=== PATIENT | male | born 1990 | race Caucasian/White ===

== ENCOUNTER 2021-01-28 15:42 | Emergency (ER) | payer BC, SELFPAY ==
[2021-01-28 16:00] VITALS: BP 124/85; PULSE 102; RESP 18; TEMP 37.1; O2SAT 99
--- NOTE | 2021-01-28 16:21 | ED.URI ---
HPI - URI/Sore Throat General Chief Complaint: Upper Respiratory Infection Stated Complaint: Sinu, Lt side of neck Time Seen by Provider: 01/28/21 16:06 Source: patient and RN notes reviewed Mode of arrival: ambulatory Limitations: no limitations History of Present Illness HPI Narrative: Patient presents today complaining of nasal congestion, left-sided sinus pressure, left-sided neck pain and lymph node tenderness, left ear pain x4 days. Denies cough, sore throat, rhinorrhea, fever, shortness of breath, or difficulty swallowing. Currently rates his pain 6/10 and has been taking decongestant and NyQuil without much relief. Pain increases in the neck with movement. MD elicited complaint: nasal congestion and sinus pain Related Data Home Medications Medication Instructions Recorded Confirmed acyclovir 200 mg PO DAILY 01/28/21 01/28/21 atorvastatin 10 mg PO DAILY 01/28/21 01/28/21 lisinopril 10 mg PO DAILY 01/28/21 01/28/21 Allergies Allergy/AdvReac Type Severity Reaction Status Date / Time Sulfa (Sulfonamide Allergy Mild Hives / Verified 01/28/21 15:56 Antibiotics) Red Face Review of Systems Review of Systems: Narrative: CONSTITUTIONAL: Denies body aches, fever, chills, or sweats. EYES: Denies visual changes, redness, or discharge. ENT: Denies rhinorrhea, sore throat.+ Congestion, left-sided sinus pressure, left neck lymph node pain, left ear pain CARDIOVASCULAR: Denies chest pain, palpitations, or edema. RESPIRATORY: Denies cough or dyspnea. GASTROINTESTINAL: Denies abdominal pain, nausea, vomiting, or diarrhea. GENITOURINARY: Denies dysuria or hematuria. SKIN: Denies rash, itching, or wounds. MUSCULOSKELETAL: Denies back pain, joint pain, or myalgia. NEUROLOGIC: Denies headache, numbness, tingling, or weakness. PSYCH: Denies depression or anxiety. [facility] Social History Social History Gender identity (if verbalized by the patient): Male Comments At time of signature, I have reviewed and agree with nursing past medical, surgical, social and family history unless otherwise noted. Please see nursing chart for further information. There is no relevant family history pertinent to the presenting complaint Exam Narrative: Exam Narrative: GENERAL: Well-appearing, well-nourished, and in no acute distress. HEAD: Normocephalic, atraumatic. EYES: EOMI. No redness or drainage. Conjunctivae normal. ENT: Mucous membranes pink and moist. Nares are erythematous and edematous. Bilateral occlusive cerumen impactions. Throat normal. Uvula midline. NECK: Normal AROM. Supple. Tenderness to the left anterior cervical chain without palpable swollen lymph node. CHEST: No respiratory distress. Clear to auscultation. HEART: Regular rate and rhythm. No murmur appreciated. Normal peripheral pulses. EXTREMITIES: Normal range of motion. No edema. SKIN: Warm, dry, no rash. Capillary refill normal. Normal skin turgor. NEURO: No focal deficits. Alert and oriented x3. Gait steady. PSYCH: Normal affect. No signs of depression or anxiety. Course Vital Signs Vital signs: Vital Signs Temperature 98.8 F 01/28/21 16:00 Pulse Rate 102 H 01/28/21 16:00 Respiratory Rate 18 01/28/21 16:00 Blood Pressure 124/85 01/28/21 16:00 Pulse Oximetry 99 01/28/21 16:00 Temperature 98.8 F 01/28/21 16:00 Pulse Rate 102 H 01/28/21 16:00 Respiratory Rate 18 01/28/21 16:00 Blood Pressure 124/85 01/28/21 16:00 Pulse Oximetry 99 01/28/21 16:00 Reviewed. Pt has been instructed to follow up with his PCP regarding his elevated blood pressure today. MDM - URI/Sore Throat Differential Diagnosis Differential diagnosis: Likely upper respiratory infection, otitis media, sinusitis, viral infection and pharyngitis Critical Care Time Critical Care Time Critical Care Time: No Discharge Plan Discharge Clinical Impression: Sinusitis Qualifiers: Sinusitis location
== END 2021-01-28 16:30 | disposition home or self-care (01) ==
PROVIDERS: Emergency Provider Nurse Practitioner
DX: J01.90 Acute sinusitis, unspecified (principal); E78.00 Pure hypercholesterolemia, unspecified; I10 Essential (primary) hypertension; M32.14 Glomerular disease in systemic lupus erythematosus; Z92.21 Personal history of antineoplastic chemotherapy
CPT/HCPCS: 99213; G0463

== ENCOUNTER 2022-05-16 10:06 | Emergency (ER) | payer BC, SELFPAY ==
--- NOTE | 2022-05-16 10:07 | ED.URI ---
HPI - URI/Sore Throat General Stated Complaint: Congestion,Dizziness Time Seen by Provider: 05/16/22 10:06 Source: patient Mode of arrival: ambulatory Limitations: no limitations History of Present Illness HPI Narrative: Mr. Trujillo is a 31-year-old male patient presenting to clinic today with complaints of fever, cough, nasal congestion, as well as dizziness since last night. He reports he had a fever of 101. He reports that his symptoms have greatly improved today but wanted to come in to be checked out. He still has some cough and nasal congestion. Temperature currently is 98?. He denies sore throat MD elicited complaint: sore throat and nasal congestion Related Data Home Medications Medication Instructions Recorded Confirmed atorvastatin 10 mg tablet 10 mg PO DAILY 01/28/21 01/28/21 lisinopril 10 mg tablet 10 mg PO DAILY 01/28/21 01/28/21 mycophenolate mofetil 500 mg tablet 500 mg PO DAILY 05/16/22 05/16/22 Allergies Allergy/AdvReac Type Severity Reaction Status Date / Time Sulfa (Sulfonamide AdvReac Mild Hives / Verified 05/16/22 10:08 Antibiotics) Red Face Review of Systems Review of Systems: Pertinent positives per HPI. Patient denies any rash, headache, visual changes, shortness of breath, chest pain, palpitations, nausea, vomiting, diarrhea, constipation, abdominal pain, or any urinary issues. PMFSH Social History Social History Gender identity (if verbalized by the patient): Male Comments At the time of my signature, I reviewed and agree with the nursing past medical, surgical, social, and family history. There is no relevant family history pertinent to the patient complaint. Exam Narrative: General: Well-developed, well nourished, in no apparent distress Head: Normocephalic, atraumatic Eyes: Pupils equally round and reactive to light bilaterally, EOM intact, sclera and conjunctive clear, no discharge, lids normal Ears: TMs intact and clear, ear canals ceruminous, no drainage, grossly hearing normal. Nose: Nares patent, clear nasal discharge, no inflammation, no sinus tenderness. Mouth: Oral pharynx without lesions or masses, good dentition, MMM. Neck: Supple, trachea midline, no enlargement of anterior or posterior cervical nodes, no thyroid masses or goiter palpable. Cardio: Regular rate and rhythm, s1 and s2 normal, no murmur appreciated. Resp: Clear to auscultation bilaterally, no rhonchi, rales, wheezing or rubs Course Course Emergency Course: Portions of this record may have been created with voice recognition software. Level of Care: Express Care Visit Vital Signs Vital signs: Vital signs reviewed MDM - URI/Sore Throat MDM Narrative Medical decision making narrative: At the time of visit patient is resting comfortably on exam table. Influenza testing was performed and was negative in the clinic today. I suspect patient has upper respiratory infection. Supportive measures were discussed with the patient he voiced understanding of discharge instructions and agrees to treatment plan. Differential Diagnosis Differential diagnosis: Likely sinusitis, viral infection, influenza and pharyngitis Discharge Plan Discharge Clinical Impression: Upper respiratory infection Qualifiers: URI type: unspecified viral URI Qualified Code(s): J06.9 - Acute upper respiratory infection, unspecified Patient Disposition: Home, Self-Care Condition: Stable Instructions: Antibiotic Form, Upper Respiratory Infection (ED) Additional Instructions: Influenza testing was negative in the clinic today. Increase fluids and stay well hydrated Tylenol/motrin for pain/fever Flonase and OTC antihistamines as directed Vicks vapor rub to open sinuses Sinus rinses for congestion Cepacol spray, cough drops, throat lozenges, warm tea with honey/lemon, gargle salt water to soothe throat BRAT diet for diarrhea Clear liquids
[2022-05-16 10:15] VITALS: BP 137/87; PULSE 78; RESP 18; TEMP 36.7; O2SAT 98
== END 2022-05-16 10:41 | disposition home or self-care (01) ==
PROVIDERS: Emergency Provider Nurse Practitioner Family
DX: J06.9 Acute upper respiratory infection, unspecified (principal)
CPT/HCPCS: 87804; 99213; G0463

== ENCOUNTER 2022-06-22 10:41 | Emergency (ER) | payer BC, SELFPAY ==
[2022-06-22 10:48] VITALS: BP 127/81; PULSE 96; RESP 16; TEMP 36.3; O2SAT 100
--- NOTE | 2022-06-22 11:33 | ED.NAVMDI ---
HPI - Nausea/Vomiting/Diarrhea General Chief complaint: Nausea/Vomiting/Diarrhea Stated complaint: Nausea,Upset Stomach Time Seen by Provider: 06/22/22 11:24 Source: patient Mode of arrival: ambulatory Limitations: no limitations History of Present Illness HPI Narrative: Patient presents today complaining of nausea, vomiting, and abdominal pain that started 1.5 hours prior to arrival. Patient states he he started experiencing upper abdominal pain while at work at the [employer]. He vomited 1 time and states his abdominal pain had subsided and he started feeling better. He left work and needed to be evaluated. Denies diarrhea. Denies fever. He rated his pain 6/10. He has tried no medication for symptoms prior to arrival. History of lupus. States he needs a note to excuse him from work today, to return tomorrow. Related Data Home Medications Medication Instructions Recorded Confirmed atorvastatin 10 mg tablet 10 mg PO DAILY 01/28/21 06/22/22 lisinopril 10 mg tablet 10 mg PO DAILY 01/28/21 06/22/22 mycophenolate mofetil 500 mg tablet 500 mg PO DAILY 05/16/22 06/22/22 acyclovir 200 mg capsule 200 mg PO DAILY 06/22/22 06/22/22 Allergies Allergy/AdvReac Type Severity Reaction Status Date / Time Sulfa (Sulfonamide AdvReac Mild Hives / Verified 06/22/22 11:01 Antibiotics) Red Face Review of Systems Review of Systems: CONSTITUTIONAL: Denies body aches, fever, chills, or sweats. EYES: Denies visual changes, redness, or discharge. ENT: Denies rhinorrhea, congestion, sore throat, or otalgia. CARDIOVASCULAR: Denies chest pain, palpitations, or edema. RESPIRATORY: Denies cough or dyspnea. GASTROINTESTINAL: Denies diarrhea.+ nausea, vomiting, abdominal pain GENITOURINARY: Denies dysuria or hematuria. SKIN: Denies rash, itching, or wounds. MUSCULOSKELETAL: Denies back pain, joint pain, or myalgia. NEUROLOGIC: Denies headache, numbness, tingling, or weakness. PSYCH: Denies depression or anxiety. [facility] Social History Social History Gender identity (if verbalized by the patient): Male Comments At time of signature, I have reviewed and agree with nursing past medical, surgical, social and family history unless otherwise noted. Please see nursing chart for further information. There is no relevant family history pertinent to the presenting complaint Exam Narrative: GENERAL: Well-appearing, well-nourished, and in no acute distress. HEAD: Normocephalic, atraumatic. EYES: EOMI. No redness or drainage. Conjunctivae normal. ENT: Mucous membranes pink and moist. NECK: Normal AROM. CHEST: No respiratory distress. Clear to auscultation. HEART: Regular rate and rhythm. No murmur appreciated. Normal peripheral pulses. ABDOMEN: Soft, nontender, nondistended, normal active bowel sounds.-CVAT MUSCULOSKELETAL: No bony tenderness. EXTREMITIES: Normal range of motion. No edema. SKIN: Warm, dry, no rash. Capillary refill normal. Normal skin turgor. NEURO: No focal deficits. Alert and oriented x3. Gait steady. PSYCH: Normal affect. No signs of depression or anxiety. Course Course Level of Care: Express Care Visit Vital Signs Vital signs: Vital Signs Temperature 97.3 F L 06/22/22 10:48 Pulse Rate 96 06/22/22 10:48 Respiratory Rate 16 06/22/22 10:48 Blood Pressure 127/81 06/22/22 10:48 Pulse Oximetry 100 06/22/22 10:48 Oxygen Delivery Room Air 06/22/22 10:48 Temperature 97.3 F L 06/22/22 10:48 Pulse Rate 96 06/22/22 10:48 Respiratory Rate 16 06/22/22 10:48 Blood Pressure 127/81 06/22/22 10:48 Pulse Oximetry 100 06/22/22 10:48 Oxygen Delivery Room Air 06/22/22 10:48 Reviewed. Pt has been instructed to follow up with his PCP regarding his elevated blood pressure today. MDM - Nausea/Vomiting/Diarrhea Differential Diagnosis Differential diagnosis: Likely food poisoning, gastroenteritis, dehydration and other (Influe
== END 2022-06-22 11:40 | disposition home or self-care (01) ==
PROVIDERS: Emergency Provider Nurse Practitioner
DX: R11.2 Nausea with vomiting, unspecified (principal); R10.10 Upper abdominal pain, unspecified; E78.00 Pure hypercholesterolemia, unspecified; I10 Essential (primary) hypertension; M32.14 Glomerular disease in systemic lupus erythematosus
CPT/HCPCS: 99211; G0463

== ENCOUNTER 2023-10-09 10:56 | Emergency (ER) | payer BC, SELFPAY ==
[2023-10-09 11:31] VITALS: BP 118/70; PULSE 84; RESP 18; TEMP 36.6; O2SAT 98
--- NOTE | 2023-10-09 12:06 | ED.NAVMDI ---
HPI - Nausea/Vomiting/Diarrhea General Chief complaint: Nausea/Vomiting/Diarrhea Stated complaint: nausea,diarrhea Time Seen by Provider: 10/09/23 11:45 Source: patient Mode of arrival: ambulatory Limitations: no limitations History of Present Illness HPI Narrative: 32 yo M presents with c/o sore throat, PND, fatigue, headache, bodyaches, upset stomach and nausea since last night. afebrile. Went to work today and did not feel well so left. Needs work note. All systems reviewed and negative except as noted above. Related Data Home Medications Medication Instructions Recorded Confirmed atorvastatin 10 mg tablet 10 mg PO DAILY 01/28/21 10/09/23 lisinopril 10 mg tablet 10 mg PO DAILY 01/28/21 10/09/23 mycophenolate mofetil 500 mg tablet 500 mg PO DAILY 05/16/22 10/09/23 Allergies Allergy/AdvReac Type Severity Reaction Status Date / Time Sulfa (Sulfonamide Allergy Mild Hives / Verified 10/09/23 11:34 Antibiotics) Red Face Review of Systems Review of Systems: CONSTITUTIONAL: Denies fever, chills, or sweats. Reports fatigue. EYES: Denies visual changes, redness, or discharge. ENT: Denies rhinorrhea, congestion reports sore throat. Denies otalgia. CARDIOVASCULAR: Denies chest pain, palpitations, or edema. RESPIRATORY: Denies cough or dyspnea. GASTROINTESTINAL: Denies abdominal pain . Reports nausea, vomiting, or diarrhea. GENITOURINARY: Denies dysuria or hematuria. SKIN: Denies rash or itching. MUSCULOSKELETAL: Denies back pain, joint pain, or myalgia. NEUROLOGIC: Denies headache, numbness, or weakness. PSYCHIATRIC: Denies anxiety or depression. All other systems reviewed are negative, except as documented in HPI. PMFSH Social History Social History Gender identity (if verbalized by the patient): Male Comments At time of signature, agree with nursing past medical, surgical, social and family history. There is no relevant family history pertinent to the presenting complaint. Exam Narrative: GENERAL: This is a well-nourished, well-developed patient, in no apparent distress. HEAD: normocephalic, atraumatic. EYES: PERRL. Sclera clear/white. Vision is grossly intact. EARS: External ears normal, auditory canals clear and without drainage, TMs normal without perforation. Hearing grossly intact. NOSE: External nose normal with no obvious nasal discharge, nares without redness, no rhinorrhea. THROAT: Mucous membranes moist, mild erythema and swelling To posterior pharynx without tonsillar swelling or exudates. NECK: Neck supple, non-tender without lymphadenopathy, masses or thyromegaly. CARDIOVASCULAR: Regular rate and rhythm without murmurs, gallops, or rubs. RESPIRATORY: Clear to auscultation. Breath sounds equal bilaterally. No wheezes, rales, or rhonchi. GASTROINTESTINAL: Abdomen soft, non-tender, nondistended. Bowel sounds are active. No hepato-splenomegaly, or palpable masses. No guarding. SKIN: warm, Dry, intact with no suspicious lesions or rash, good texture and turgor. NEURO: awake, alert, and oriented to person, place and time. There were no obvious focal neurologic abnormalities. EXTREMITIES: No joint tenderness, effusion, or edema noted. Course Course Level of Care: Express Care Visit Vital Signs Vital signs: Vital Signs Temperature 36.6 C 10/09/23 11:31 Pulse Rate 84 10/09/23 11:31 Respiratory Rate 18 10/09/23 11:31 Blood Pressure 118/70 10/09/23 11:31 Pulse Oximetry 98 10/09/23 11:31 Oxygen Delivery Room Air 10/09/23 11:31 Temperature 36.6 C 10/09/23 11:31 Pulse Rate 84 10/09/23 11:31 Respiratory Rate 18 10/09/23 11:31 Blood Pressure 118/70 10/09/23 11:31 Pulse Oximetry 98 10/09/23 11:31 Oxygen Delivery Room Air 10/09/23 11:31 reviewed MDM - Nausea/Vomiting/Diarrhea MDM Narrative Medical decision making narrative: negative COVID, influenza and strep test today. Will wait
== END 2023-10-09 12:25 | disposition home or self-care (01) ==
PROVIDERS: Emergency Provider Nurse Practitioner Family
DX: B34.9 Viral infection, unspecified (principal); Z20.822 Contact with and (suspected) exposure to COVID-19
CPT/HCPCS: 87081; 87426; 87804; 87880; 99213; G0463

== ENCOUNTER 2024-08-25 10:31 | Emergency (ER) | payer BC, SELFPAY ==
--- OUTSIDE RECORDS SUMMARY | 2024-08-25 10:54 | XMS_ITS | Clinical Summary ---
Author Organization [facility] Address [facility] [place] [address] Care Team Providers Care Home Insurance Agent Name Role Phone Dayton Hebert MD Primary Care Provider [phone] Allergies Active Allergy Reactions Criticality Noted Date Comments Amoxicillin Other (see comment) Low 11/13/2017 Benzalkonium Chloride Rash Medium 06/20/2018 Positve patch test allergen Benzophenone Rash Medium 06/20/2018 Positve patch test allergen Hydroxychloroquine Other (see comment),Hives Medium 05/31/2018 Pt reported Mucopolysaccharides Hives High 03/29/2018 Sulfa Antibiotics Hives 08/27/2018 Sulfacetamide Unknown 04/11/2018 Medications cholecalciferol (VITAMIN D-[address]) 25 MCG (1000 UT) Tab tablet Take 1,000 Units by mouth daily. Active mycophenolate mofetil 500 MG tablet Take 1,000 mg by mouth 3 (three) times daily. 08/13/2019 Active acyclovir 200 mg capsule 08/07/2021 Active lisinopril 30 MG tablet 10/16/2021 Active Ascorbic Acid (VITAMIN C OR) Activ e Multiple Vitamins-Mineral s (ZINC OR) Active Active Problems Problem Noted Date Diagnosed Date Lupus nephritis, ISN/RPS class III (CMS/HCC [facility]/ [facility]) 09/11/2019 Essential hypertension 05/23/2019 Overview (10/25/2021): Last Assessment & Plan: Continue home lisinopril Lumbar disc disease with radiculopathy 9 Subcutaneous abscess 05/04/2018 Sebaceous cyst 04/11/2018 Overview (05/30/2018): Description: Cyst on Left side of upper back. Immunizations Name Administration Dates Next Due Influenza Adult (Generic) 05/08/2019 Pneumococcal (Pneumovax 23) 05/08/2019 Rabies Vaccine 01/09/2016,01/02/2016,12/29/2015 ,12/26/2015 Tdap (Generic) 12/26/2015 Family History Medical History Relation Comments Diabetes Father Cancer Maternal Grandfather Cancer Maternal Grandmother Cancer Mother Diabetes Paternal Grandfather Relation Status Comments Father Alive Maternal Grandfather stomach Maternal Grandmother throat Mother Alive skin Paternal Grandfather Social History Tobacco Use Types Packs/Day Years Used Date Smoking Tobacco: Every Day Cigarettes Cigars Smokeless Tobacco: Never Tobacco Cessation:Ready to Q uit: No; Counseling Given: Yes Comments:1 cigar a day Alcohol Use Standard Drinks/Week Comments Yes 0 (1 standard drink = 0.6 oz pur e alcohol) social AUDIT-C Answer Date Recorded Frequency of Alcohol Consumption Monthly or less 05/30/2018 Average Number of Drinks Not on file 018 Frequency of Binge Drinking Not on file 05/17 PHQ-2 Answer Date Recorded PHQ-2 Score - If the patient scores above 3, please move on to questions 3-9 0 10/25/2021 Sex and Gender Information Value Date Recorded Sex Assigned at Not on file Legal Sex Male 5:43 PM CDT Gender Identity Not on file Sexual Orientation Not on file Last Filed Vital Signs Vital Sign Reading Time Taken Comments Blood Pressure 135/81 10/25/2021 10:57 AM CDT Pulse 90 10/25/2021 10:57 AM CDT Temperature 36.4 C (97.5 F) 10/25/2021 10:57 AM CDT Respiratory Rate 18 10/25/2021 10:5 7 AM CDT Oxygen Saturation 98% 10/25/2021 10: 57 AM CDT Inhaled Oxygen Concentration - - Weight 126.8 kg (279 lb 9.6 oz) 022 10:57 AM CDT Height 190.5 cm (6' 3 ) 10/25/2021 10:5 7 AM CDT Body Mass Index 34.95 10/25/2021 10:57 AM CDT Plan of Treatment Health Maintenance Due Date Last Done Comments Annual Physical 11/18/1991 COVID-19 Vaccine (#1) 1993 PHQ-2 (Physician [facility]ler) 2000 Hepatitis C 2006 Hepatitis B Vaccines (1 of 3 - 19+ 3-dose series) 11/18/2007 Pneumococcal Vaccine: Pediat rics (0 to 5 Years) and At-Risk Patients (6 to 64 Years) (2 of 2 - PCV) 05/08/2020 05/08/2019 Influenza Adult (#1) 2024 05/08/2019 PHQ-2 (Physician [facility]) 07/17/2024 DTaP, Tdap and Td Vaccines ( 2 - Td or Tdap) 12/25/2025 12/26/2015 HPV Vaccines Aged Out No longer eligi ble based on patient's age to complete this topic Meningococcal B Vaccine Aged Out No l onger eligible based on patient's age to complete this topic Meningococcal Vaccine Aged Out No mary kevin eligible based on patient's age to complete this topic RSV Immunizations Under 20 Months Aged Out No longer eligible based on patient's age to complete this topic Insurance [employer] Care Teams Home Insurance Agent Relationship Specialty Start Date End Date Dayton Hebert MD [address] [address] PCP - General FAMILY PRACTICE 05/28/18
--- OUTSIDE RECORDS SUMMARY | 2024-08-25 10:55 | XMS_ITS | Clinical Summary ---
Author Organization [facility] Address [address] [place] [address] Care Team Providers Care Cnc Maintenance Technician Name Role Phone No, Physician Primary Care Provider [phone] Allergies Active Allergy Reactions Criticality Noted Date Comments Amoxicillin Trihydrate Other (See comments) Low 11/13/2017 Benzalkonium Chloride Rash Medium 06/20/2018 Positve patch test allergen Benzophenone Rash Medium 06/20/2018 Positve patch test allergen Clindamycin Other (See comments) Low 11/13/2017 Hydroxychloroquine Hives,Fever Medium 05/31/2018 Pt reported Potassium Clavulanate Other (See comments) Low 11/13/2017 Sulfa (Sulfonamide Antibiotics) Hives High 10/20/2017 Sulfacetamide Hives High 04/11/2018 Sulfated Mucopolysaccharides Hives High 018 Medications cholecalciferol (VITAMIN D-3) 1,000 unit capsuleIndicati ons:Vitamin D Deficiency Take 1 capsule (1,000 Units total) by mouth daily 90 tablet 3 10/30/2019 Active mycophenolate mofetil (CELLCEPT) 500 mg tablet Take 1 tablet (500 mg total) by mouth daily 30 tablet 11 12/07/2023 Active lisinopriL (PRINIVIL,ZESTR IL) 30 mg tablet Take 1 tablet (30 mg total) by mouth daily 90 tablet 1 05/27/2024 Active Active Problems Problem Noted Date Diagnosed Date Hypertension secondary to other renal disorders 12/25/2023 Mixed hyperlipidemia 11/03/2022 Vitamin D deficiency 07/01/2020 Lupus nephritis, ISN/RPS class III ([facility]) Lupus nephritis ([facility]) 09/11/2019 Leg cramping 05/24/2019 Assessment & Plan (05/24/2019 10:40 AM PRODUCTION SUPERINTENDENT): Patient says he experiences occasional leg cramping. Worse at night. - improved with flexeril Persistent proteinuria 05/23/2019 Assessment & Plan (05/24/2019 10:39 AM PRODUCTION SUPERINTENDENT): Due to proteinuria patient presented yesterday for US guided kidney biopsy. - No complications noted over night, hgb stable - Pain and nausea control- patient denies pain and nausea Assessment & Plan (05/23/2019 4:43 PM PRODUCTION SUPERINTENDENT): Due to proteinuria patient presented today for US guided kidney biopsy. - monitor overnight for post procedure complications - cbc ordered for 6 hours after procedure - Pain and nausea control Primary hypertension 05/23/2019 Assessment & Plan (05/24/2019 10:39 AM PRODUCTION SUPERINTENDENT): Continue home lisinopril Assessment & Plan (05/23/2019 4:36 PM PRODUCTION SUPERINTENDENT): Continue home lisinopril Phototoxicity 10/02/2018 High risk medications (not anticoagulants) long- term use 09/12/2018 Lumbar disc disease with radiculopathy 9 Gynecomastia 07/01/2018 Low testosterone 07/01/2018 Other forms of systemic lupus erythematosus 03/17 Assessment & Plan (05/24/2019 10:39 AM PRODUCTION SUPERINTENDENT): Continue home imuran and prednisone Assessment & Plan (05/23/2019 4:43 PM PRODUCTION SUPERINTENDENT): Continue home imuran and prednisone Immunizations Name Administration Dates Next Due Influenza, Quadrivalent, Lena l Culture-based MDCK, Preservative Free, Antibiotic Free, Intramuscular 05/08/2019 Pneumococcal Conjugate PCV 13 02/03/2022 Pneumococcal Polysaccharide PPV23 05/08/2019 Surgical History Surgery Date Site/Laterality Comments ABCESS DRAINAGE US GUIDED BIOPSY RENAL 05/23/2019 N/A Medical History Medical History Date Comments Abscess Lupus Hypertension Family History Medical History Relation Name Comments Diabetes Father Skin cancer Mother Rheum arthritis Other great paternal grandmoth Diabetes Paternal Grandfather Relation Name Status Comments Father Alive Mother Alive Other great paternal grandmoth Alive Paternal Grandfather Social History Tobacco Use Types Packs/Day Years Used Date Smoking Tobacco: Former Cigarettes 0.5 5 Cigars Smokeless Tobacco: Never Tobacco Cessation:Counseling Given: Not Answered Alcohol Use Standard Drinks/Week Comments Yes 0 (1 standard drink = 0.6 oz pur e alcohol) Occasional Sex and Gender Information Value Date Recorded Sex Assigned at Not on file Legal Sex Male 12:01 PM PRODUCTION SUPERINTENDENT Gender Identity Male 11/06/2018 11:18 AM CDT Sexual Orientation Not on file Obstetrics History Last Filed Vital Signs Vital Sign Reading Time Taken Comments Blood Pressure 120/80 12/07/2023 9:42 AM CDT Pulse 82 12/07/2023 9:42 AM CDT Temperature 36.8 C (98.2 F) 12/07/2023 9:42 AM CDT Respiratory Rate 16 09/14/2020 7:53 AM PRODUCTION SUPERINTENDENT Oxygen Saturation 100% 10/28/2020 1:25 PM CDT Inhaled Oxygen Concentration - - Weight 134.3 kg (296 lb) 12/07/2023 9:42 AM CDT Height 193 cm (6' 4 ) 12/07/2023 9:42 AM CDT Body Mass Index 36.03 12/07/2023 9:42 AM CDT Plan of Treatment Health Maintenance Due Date Last Done Comments Depression Screening 1988 Varicella Vaccines (1 of 2 - 13+ 2-dose series) 2001 Hepatitis B Screening 2006 Regular Well Visit/Exam 18-64 2006 Zoster Vaccine (1 of 2) 11/18/2007 Influenza Vaccine (#1) 2024 9, 05/03/2001 Pneumococcal vaccine <65 (3 of 3 - PPSV23 or PCV20) 05/08/2024 02/03/2022, 05/08/2019 DTaP/Tdap/Td Vaccine (3 - Td or Tdap) 12/25/2025 12/26/2015, 12/26/2015 Hepatitis C Screening Completed 05/08/2019 HPV Vaccines Aged Out No longer eligi ble based on patient's age to complete this topic Procedures Procedure Name Priority Date/Time Associated Diagnosis Comments HEPATITIS PANEL, ACUTE Routine 05/08/2019 10:32 AM CDT Proteinuria, unspecified type from Last 3 Months or Most Recently Relevant to Health Maintenance Results * Hepatitis panel, acute (05/08/2019 10:32 AM CDT) Hep A IgM Nonreactive Nonreactive [facility] Comment: Interpretive Data If test is reported as GRAYZONE, new sample should be drawn in two weeks for testing. Current interpretive data was last revised on 2016. Hep B core IgM Nonreactive Nonreactive [facility] Comment: Interpretive Data If test is reported as GRAYZONE, new sample should be drawn for testing. Current interpretive data was last revised on 2016. Hep C Ab Nonreactive Nonreactive [facility] Comment: Interpretive Data Positive results should be confirmed by a molecular method. If positive, a second separately collected sample should be submitted for Hepatitis C Virus (HCV) RNA Detection and Quantitation by Real-Time Reverse Strings Teacher-PCR (RT-PCR). Current interpretive data was last revised on 2016. HepBsAg Nonreactive Nonreactive [facility] Blood specimen (specimen) 05/08/2019 10:32 AM CDT 05/08/2019 10:41 AM CDT Jjuu Gonzalez MD LAB MICROBIOLOGY - GENERA L ORDERABLES Edited Result - Final [address] [place] [address] from Last 3 Months or Most Recently Relevant to Health Maintenance Insurance [facility] [place] Advance Directives For more information, please contact: [phone] * Full Code (Latest Code Status on File) Date Activated Date Inactivated Comments 05/23/2019 11:35 AM 05/24/2019 4:43 AM Care Teams Cnc Maintenance Technician Relationship Specialty Start Date End Date No, Physician PCP - General 04/28/22
--- OUTSIDE RECORDS SUMMARY | 2024-08-25 10:55 | XMS_ITS | Encounter Summary ---
Author Organization [facility] [employer] [facility] Address [address] [place] [address] Phone Care Team Providers Care Hematologist Oncologist Name Role Phone Eliot Mari MD Primary Care Provider + No, Physician Primary Care Provider [phone] No, Physician Primary Care Provider [phone] Encounter Details Date Type Department Care Team (Late st Contact Info) Description 09/08/2019 Orders Only [facility] Scanning, Provider Social History Tobacco Use Types Packs/Day Years Used Date Smoking Tobacco: Former Cigarettes 0.5 5 Cigars Smokeless Tobacco: Never Alcohol Use Standard Drinks/Week Comments Yes 0 (1 standard drink = 0.6 oz pur e alcohol) Occasional Sex and Gender Information Value Date Recorded Sex Assigned at Not on file Legal Sex Male 12:01 PM ALTERNATIVE FINANCING SPECIALIST Gender Identity Male 11/06/2018 11:18 AM CDT Sexual Orientation Not on file documented as of this encounter Plan of Treatment Not on file documented as of this encounter Procedures Procedure Name Priority Date/Time Associated Diagnosis Comments SCAN - LABS 09/08/2019 documented in this encounter Results * SCAN - LABS (09/08/2019) us Provider Scanning Final Result documented in this encounter Visit Diagnoses Not on filedocumented in this encounter Care Teams Hematologist Oncologist Relationship Specialty Start Date End Date Eliot Mari MD [address] [place] [address] PCP - General 02/22/18 08/30/20 No, Physician PCP - General 08/31/20 04/27/22 No, Physician PCP - General 04/28/22 documented as of this encounter
--- OUTSIDE RECORDS SUMMARY | 2024-08-25 10:55 | XMS_ITS | Clinical Summary ---
Author Organization [facility] Address [address] [facility] Attn: Epic Prelude ADT [place] [address] Care Team Providers Care Asphalt Tar And Gravel Roofer Name Role Phone Unavailable Primary Care Provider Unavailabl e Social History Tobacco Use Types Packs/Day Years Used Date Smoking Tobacco: Never Assessed Sex and Gender Information Value Date Recorded Sex Assigned at Not on file Legal Sex Male 10:01 PM CDT Gender Identity Not on file Sexual Orientation Not on file Plan of Treatment Health Maintenance Due Date Last Done Comments DTAP/TDAP/TD VACCINES (1 - Tdap) 11/18/2007 HEPATITIS B VACCINES (1 of 3 - 19+ 3-dose series) 11/18/2007 INFLUENZA VACCINE (#1) 2024 HPV VACCINES Aged Out No longer eligi ble based on patient's age to complete this topic PNEUMOCOCCAL VACCINE 0-64 YEARS Aged Out No longer eligible based on patient's age to complete this topic
--- OUTSIDE RECORDS SUMMARY | 2024-08-25 10:55 | XMS_ITS | Continuity of Care Document ---
Author Organization [facility] Address [address] [place] [address] Phone Care Team Providers Care Production Administrator Name Role Phone Héctor HOGUE, Lacey Unavailable Unavailabl e Allergies, Adverse Reactions, Alerts Substance Reaction Status Criticality POTASSIUM CLAVULANATE Active No Inf ormation AMOXICILLIN TRIHYDRATE Active No In formation clindamycin Active No Information Medications Medication Instructions Dosage Effective Dates (start - stop) Status Comments prednisone 10 mg tablet 4 for 3 days, 3 for 3 days, 2 for 3 days and one 3 days - Active [facility] 180 mg tablet take 1 tablet by oral route every day 180 MG - Active famotidine 40 mg tablet take 1 tablet by oral route every day at bedtime 40 MG - Active Procedures Procedure Date OFFICE/OUTPATIENT VISIT NEW Advance Directives Directive Yes / No Effective Date File Name No Information Encounters Encounter Description Practice Location Reason(s) For Visit Diagnoses Date Provider Providers Copied on Encounter [facility] , [address] [facility] [address], [place], [address], [place] tel:[phone] [facility] No Information 8 Héctor Hamsa. [address], [place], [place], [id number]. tel:[phone] OFFICE/OUTPA TIENT VISIT NEW [facility] , [address] [facility], [place], [address], [place] tel:[phone] [facility] allergy evaluation (chief complaint) Rash and nonspecific skin eruptionPhotot oxicity 0 8 Héctor Hamsa. [address], [place], [place], [id number]. tel:[phone] Family History Family Member Type Diagnosis Age At Onset Father Problem (finding) Maternal history of carol betes mellitus Father Problem (finding) arthritis Mother Problem (finding) skin cancer Payers Payer name Insurance type Covered libertarian ID Authoriza tion(s) No Information Social History Type Description Quantity Date Captured Comments Sex Male Smoking Status No Information Chief Complaint And Reason For Visit No Information Reason For Referral Reason For Referral No Information History Of Present Illness Encounter Date Complaint History Of Prese nt Illness allergy evaluation Referred by [facility] , this is a gentleman with a very flushed face and neck (sun exposed areas) and a very scaly desquamating rash on his hands, neck , face and scalp, he has seen a tow truck operator but has not had a biopsy , the rash is very flaky , in Aug a ANÍBAL stain was done and was negatives ,At one point he had hives all over- which has since resolved Symptoms started in he had a Strep throat and bronchitis , treated with augmenting and tesslon pearls ,no NSAID's that he can remember , 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 , initial rash was on his face and neck - all sun exposed areas no mucous membrane lesions, affected skin was hot and feverish He after his hurt his foot, was on work comp , aug/september this was followed by stiff joints and face flushing , redness and flaky skin got worse - he did not flu shot , he was on 600mg of ibuprofen and vicodin This was followed by a cyst on his back , which was drained and since it was infected, he was given Clindamycin and the rash was worse on day 6 no new piercing , tattoos are more than one year he uses sunblock SPF 70One year ago - he had a cyst on his back , which was drained and given Sulfa and developed a rash he still has a flushed face and some dry scaly skin over his hands, neck and some on his face , no hives, no angioedema, itching Functional Status Date Functional Assessmen t No Information Instructions Date Instruction Additional Infor mation No Information Assessments Type Assessment Date No Information Patient Care Teams Name Effective Dates (start - stop) Status Members No Information
--- OUTSIDE RECORDS SUMMARY | 2024-08-25 10:55 | XMS_ITS | Continuity of Care Document ---
Author Organization [facility] Address [address] [place] [address] [place] [address] Phone Care Team Providers Care Parent Coach Name Role Phone Chiki Jensen DO Unavailable Unavailable Advance Directives Directive Yes / No Effective Date File Name No Information Encounters Encounter Description Practice Location Reason(s) For Visit Diagnoses Date Provider Providers Copied on Encounter [facility], [address] [place] [address] [address], [place], [place], [address], tel:[phone] [facility] No Information Mikey Oakley. [address], [place], [address], . tel: [phone] Family History Family Member Type Diagnosis Age At Onset No Information Payers Payer name Insurance type Covered libertarian ID Authorsam rudolph(s) [facility] Commercial CI [id number] Social History Type Description Quantity Date Captured Comments Sex Male Smoking Status No Information Chief Complaint And Reason For Visit No Information Reason For Referral Reason For Referral No Information History Of Present Illness Encounter Date Complaint History Of Prese nt Illness No Information Functional Status Date Functional Assessmen t No Information Instructions Date Instruction Additional Infor mation No Information Assessments Type Assessment Date No Information Patient Care Teams Name Effective Dates (start - stop) Status Members No Information
--- OUTSIDE RECORDS SUMMARY | 2024-08-25 10:55 | XMS_ITS | Referral Summary ---
Author Organization [facility] Address [address] [place] [address] Care Team Providers Care Compliance Professional Name Role Phone No, Physician Primary Care Provider [phone] Allergies Active Allergy Reactions Criticality Noted Date [...] deficiency 07/01/2020 Lupus nephritis, ISN/RPS class III ([facility]) Lupus nephritis ([facility]) 09/11/2019 Leg cramping 05/24/2019 Assessment & Plan (05/24/2019 10:40 AM KEEL PRESS OPERATOR): Patient says he experiences occasional leg cramping. Worse at night. - improved with flexeril Persistent proteinuria 05/23/2019 Assessment & Plan (05/24/2019 10:39 AM KEEL PRESS OPERATOR): Due to proteinuria patient presented yesterday for US guided kidney biopsy. - No complications noted over night, hgb stable - Pain and nausea control- patient denies pain and nausea Assessment & Plan (05/23/2019 4:43 PM KEEL PRESS OPERATOR): Due to proteinuria patient presented today for US guided kidney biopsy. - monitor overnight for post procedure complications - cbc ordered for 6 hours after procedure - Pain and nausea control Primary hypertension 05/23/2019 Assessment & Plan (05/24/2019 10:39 AM KEEL PRESS OPERATOR): Continue home lisinopril Assessment & Plan (05/23/2019 4:36 PM KEEL PRESS OPERATOR): Continue home lisinopril Phototoxicity 10/02/2018 High risk medications (not anticoagulants) long- term use 09/12/2018 Lumbar disc disease with radiculopathy 9 Gynecomastia 07/01/2018 Low testosterone 07/01/2018 Other forms of systemic lupus erythematosus 03/17 Assessment & Plan (05/24/2019 10:39 AM KEEL PRESS OPERATOR): Continue home imuran and prednisone Assessment & Plan (05/23/2019 4:43 PM KEEL PRESS OPERATOR): Continue home imuran and prednisone Immunizations Name Administration Dates Next Due Influenza, Quadrivalent, Lena l Culture-based MDCK, Preservative Free, Antibiotic Free, Intramuscular 05/08/2019 Pneumococcal Conjugate PCV 13 02/03/2022 Pneumococcal Polysaccharide PPV23 05/08/2019 Social History Tobacco Use Types Packs/Day Years Used Date Smoking Tobacco: Former Cigarettes 0.5 5 Cigars Smokeless Tobacco: Never Tobacco Cessation:Counseling Given: Not Answered Alcohol Use Standard Drinks/Week Comments Yes 0 (1 standard drink = 0.6 oz pur e alcohol) Occasional Sex and Gender Information Value Date Recorded Sex Assigned at Not on file Legal Sex Male 12:01 PM KEEL PRESS OPERATOR Gender Identity Male 11/06/2018 11:18 AM CDT Sexual Orientation Not on file Last Filed Vital Signs Vital Sign Reading Time Taken Comments Blood Pressure 120/80 12/07/2023 9:42 AM CDT Pulse 82 12/07/2023 9:42 AM CDT Temperature 36.8 C (98.2 F) 12/07/2023 9:42 AM CDT Respiratory Rate 16 09/14/2020 7:53 AM KEEL PRESS OPERATOR Oxygen Saturation 100% 10/28/2020 1:25 PM CDT Inhaled Oxygen Concentration - - Weight 134.3 kg (296 lb) 12/07/2023 9:42 AM CDT Height 193 cm (6' 4 ) 12/07/2023 9:42 AM CDT Body Mass Index 36.03 12/07/2023 9:42 AM CDT Plan of Treatment Not on file Procedures Procedure Name Priority Date/Time Associated Diagnosis Comments HEPATITIS PANEL, ACUTE Routine 05/08/2019 10:32 AM CDT Proteinuria, unspecified type from Last 3 Months or Most Recently Relevant to Health Maintenance Results * Hepatitis panel, acute (05/08/2019 10:32 AM CDT) Hep A IgM Nonreactive Nonreactive [facility] Comment: Interpretive Data If test is reported as GRAYZONE, new sample should be drawn in two weeks for testing. Current interpretive data was last revised on 2016. Hep B core IgM Nonreactive Nonreactive [facility] Comment: Interpretive Data If test is reported as GRAYZONE, new sample should be drawn for testing. Current interpretive data was last revised on 2016. Hep C Ab Nonreactive Nonreactive [facility] Comment: Interpretive Data Positive results should be confirmed by a molecular method. If positive, a second separately collected sample should be submitted for Hepatitis C Virus (HCV) RNA Detection and Quantitation by Real-Time Reverse [place] [employer] Leader-PCR (RT-PCR). Current interpretive data was last revised on 2016. HepBsAg Nonreactive Nonreactive [facility] Blood specimen (specimen) 05/08/2019 10:32 AM CDT 05/08/2019 10:41 AM CDT Juju Gonzalez MD LAB MICROBIOLOGY - GENERA L ORDERABLES Edited Result - Final [address] [place] [address] from Last 3 Months or Most Recently Relevant to Health Maintenance Insurance [facility] Advance Directives For more information, please contact: [phone] * Full Code (Latest Code Status on File) Date Activated Date Inactivated Comments 05/23/2019 11:35 AM 05/24/2019 4:43 AM Care Teams Compliance Professional Relationship Specialty Start Date End Date No, Physician PCP - General 04/28/22
--- OUTSIDE RECORDS SUMMARY | 2024-08-25 10:57 | XMS_ITS | Continuity of Care Document ---
Author Organization [facility] Address [address] [place] [address] [place] [address] Phone Care Team Providers Care Hydrodynamics Teacher Name Role Phone Chiki Jensen DO Unavailable Unavailable Advance Directives Directive Yes / No Effective Date File Name No Information Encounters Encounter Description Practice Location Reason(s) For Visit Diagnoses Date Provider Providers Copied on Encounter [facility], [address] [place] [address] [address], [place], [place], [id number], tel:[phone] [facility] No Information Mikey Oakley. [address] [facility] [address], [place], [address], . tel: [phone] Family History Family Member Type Diagnosis Age At Onset No Information Payers Payer name Insurance type Covered republican ID Authorsam rudolph(s) [facility] Commercial CI [id number] Social History Type Description Quantity Date Captured [...]
--- OUTSIDE RECORDS SUMMARY | 2024-08-25 10:57 | XMS_ITS | Continuity of Care Document ---
Author Organization [facility] Address [address] [facility] [facility] [address] [place] [address] Phone Care Team Providers Care Criminal Researcher Name Role Phone Héctor HOGUE, Lacey Unavailable [...] [facility] , [address] [facility] [address], [place], [address], [place] tel:[phone] [facility] No Information 8 Héctor Hamsa. [address], [place], [place], [address]. tel:[phone] OFFICE/OUTPA TIENT VISIT NEW [facility] , [address] [address] [facility], [place], [address], [place] tel:[phone] [facility] allergy evaluation (chief complaint) Rash and nonspecific skin eruptionPhotot oxicity 0 8 Héctor Hamsa. [address], [place], [place], [address]. tel:[phone] Family History Family Member Type Diagnosis Age At Onset Father Problem (finding) Maternal history of carol betes mellitus Father Problem (finding) arthritis Mother Problem (finding) skin cancer Payers Payer name Insurance type Covered democrat ID Authoriza tion(s) No Information Social History [...] face and scalp, he has seen a cardiovascular or nurse but has not had a biopsy , [...]
[2024-08-25 11:42] VITALS: BP 109/71; PULSE 63; RESP 18; TEMP 36.7; O2SAT 100
--- NOTE | 2024-08-25 12:20 | ED_ITS ---
HPI - General Adult General Chief complaint: Upper Respiratory Infection Stated complaint: sore throat and congestion Time Seen by Provider: 08/25/24 12:21 Source: patient Mode of arrival: ambulatory Limitations: no limitations History of Present Illness HPI narrative: Vijay is a 33-year-old male complaining of sore throat mainly on his right and cough x2 days. He reports stabbing pain in the throat. He denies congestion, runny nose, headache, or fever. He denies body aches. He denies nausea or vomiting today. He reports being otherwise in his usual state of health. All other systems reviewed and negative as noted in HPI Related Data Home Medications ?Medication ?Instructions ?Recorded ?Confirmed ?Last Taken ?Type atorvastatin 10 mg tablet 10 mg PO DAILY 01/28/21 10/09/23 Unknown History lisinopril 10 mg tablet 10 mg PO DAILY 01/28/21 10/09/23 Unknown History mycophenolate mofetil 500 mg tablet 500 mg PO DAILY 05/16/22 10/09/23 Unknown History Allergies Allergy/AdvReac Type Severity Reaction Status Date / Time Sulfa (Sulfonamide Allergy Mild Hives / Verified 10/09/23 11:34 Antibiotics) Red Face sulfates Allergy Mild Unknown Uncoded 08/25/24 12:30 Review of Systems Review of Systems: CONSTITUTIONAL: Denies fever, chills, or sweats. EYES: Denies visual changes, redness, or discharge. ENT: Denies rhinorrhea, congestion. reports sore throat, denies otalgia. CARDIOVASCULAR: Denies chest pain, palpitations, or edema. RESPIRATORY: reports cough. denies dyspnea. GASTROINTESTINAL: Denies abdominal pain, nausea, vomiting, or diarrhea. GENITOURINARY: Denies dysuria or hematuria. SKIN: Denies rash or itching. MUSCULOSKELETAL: Denies back pain, joint pain, or myalgia. NEUROLOGIC: Denies headache, numbness, or weakness. PSYCHIATRIC: Denies anxiety or depression. All other systems reviewed are negative, except as documented in HPI. Constitutional: Comments: [facility] Social History Social History Gender identity (if verbalized by the patient): Male Comments At time of signature, I have reviewed and agree with nursing past medical, surgical, social and family history unless otherwise noted. Please see nursing chart for further information. There is no relevant family history pertinent to the presenting complaint. Exam Narrative: GENERAL: This is a well-nourished, well-developed patient, in no apparent distress. HEAD: normocephalic, atraumatic. EYES: PERRL. Sclera clear/white. Vision is grossly intact. EARS: External ears normal, auditory canals ceruminous and without drainage, TMs normal without perforation. Hearing grossly intact. NOSE: External nose normal with no obvious nasal discharge, nares without redness, no rhinorrhea. THROAT: Mucous membranes moist, posterior pharynx +exudate, erythema, and edema. NECK: Neck supple, non-tender without lymphadenopathy, masses or thyromegaly. CARDIOVASCULAR: Regular rate and rhythm without murmurs, gallops, or rubs. RESPIRATORY: Clear to auscultation. Breath sounds equal bilaterally. No wheezes, rales, or rhonchi. SKIN: warm, Dry, intact with no suspicious lesions or rash, good texture and turgor. NEURO: awake, alert, and oriented to person, place and time. There were no obvious focal neurologic abnormalities. EXTREMITIES: No joint tenderness, effusion, or edema noted. Course Course Emergency Course: Patient is aware of diagnosis, understands and agrees to treatment plan. Anticipatory guidance was given. Patient agrees to follow-up as directed and is aware of reasons to seek care at the emergency department. Please be advised this is a medical document. It is intended for [id number] communication. It is written in medical language and may contain unfamiliar abbreviations or verbiage. Medical documents are intended to carry relevant information, facts as evident, and the clinical opinion of the practitioner at the time of the encounter. This report may have been done utilizing a voice recognition system. Attempts have been made to correct errors. However, there may be uncorrected grammatical, spelling, and recognition errors present. The file time of this note does not necessarily represent the time the patient was seen. Level of Care: Express Care Visit Vital Signs Vital signs: Vital Signs Temperature 36.7 C 08/25/24 11:42 Pulse Rate 63 08/25/24 11:42 Respiratory Rate 18 08/25/24 11:42 Blood Pressure 109/71 08/25/24 11:42 Pulse Oximetry 100 08/25/24 11:42 Oxygen Delivery Room Air 08/25/24 11:42 Temperature 36.7 C 08/25/24 11:42 Pulse Rate 63 08/25/24 11:42 Respiratory Rate 18 08/25/24 11:42 Blood Pressure 109/71 08/25/24 11:42 Pulse Oximetry 100 08/25/24 11:42 Oxygen Delivery Room Air 08/25/24 11:42 Reviewed. Medical Decision Making MDM Narrative Medical decision making narrative: Patient was negative for Flu, COVID, and rapid Strep today. Strep Culture sent out. Discussed physical exam findings with patient including exudate in throat and reviewed prescriptions. Advised supportive measures and reviewed signs symptoms for patient to the ER. Note: Patient was prescribed Augmentin, however the pharmacist called with a drug interaction with the patient's mycophenolate. After conferring with the pharmacist, the patient was changed to Doxycycline 100mg PO BID x7 days. This order was provided verbally directly to the pharmacist via phone. Differential Diagnosis Differential Diagnosis: Viral pharyngitis vs URI vs Strep vs exudative pharyngitis Vital Signs Vital Signs: Vital Signs Temperature 36.7 C 08/25/24 11:42 Pulse Rate 63 08/25/24 11:42 Respiratory Rate 18 08/25/24 11:42 Blood Pressure 109/71 08/25/24 11:42 Pulse Oximetry 100 08/25/24 11:42 Oxygen Delivery Room Air 08/25/24 11:42 Temperature 36.7 C 08/25/24 11:42 Pulse Rate 63 08/25/24 11:42 Respiratory Rate 18 08/25/24 11:42 Blood Pressure 109/71 08/25/24 11:42 Pulse Oximetry 100 08/25/24 11:42 Oxygen Delivery Room Air 08/25/24 11:42 Reviewed. Lab Data Labs: Lab Results 08/25/24 Range/Units 11:50 POC Influenza A Ag Negative (Negative) POC Influenza B Ag Negative (Negative) POC SARS CoV-2 Ag Negative (Negative) POC Grp A Strep Screen Negative (Negative) Reviewed. Discharge Plan Discharge Clinical Impression: Exudative pharyngitis Patient Disposition: Home, Self-Care Condition: Stable Instructions: Antibiotic Form, Pharyngitis (ED) Additional Instructions: You were diagnosed with exudative pharyngitis today. Cover all coughs. Push fluids and eat foods that contain fluids such as applesauce. Rest. Do not share eating or drinking utensils. Use good handwashing techniques. Use warm saltwater gargles for sore throat. May use over the counter acetaminophen and/or ibuprofen by mouth as needed and as directed on packaging for pain. Take medications as prescribed. Follow printed instructions provided. Follow up with PCP. If symptoms are not improving on this regimen, please return to clinic or follow up with PCP. If symptoms are worsening or you develop shortness of breath or trouble breathing or any other concern, proceed immediately to the ER. Patient Language: Italian Prescriptions: New amoxicillin-pot clavulanate 875-125 mg tablet 1 tablet PO Q12H Qty: 20 0RF No Action mycophenolate mofetil 500 mg tablet 500 mg PO DAILY atorvastatin 10 mg tablet 10 mg PO DAILY lisinopril 10 mg tablet 10 mg PO DAILY Follow-up/Referrals: PHYSICIAN,CHEMICAL UNIT OPERATOR [Primary Care Provider] - Stand Alone Forms: Work/School Release IP Time of Disposition: 12:45
[2024-08-25 14:52] LABS: EDCOVIDSCREEN Negative (Negative); EDINFLUASCREEN Negative (Negative); EDINFLUBSCREEN Negative (Negative); EDSTREPNEGPOS1 Negative (Negative)
== END 2024-08-25 12:54 | disposition home or self-care (01) ==
PROVIDERS: Emergency Provider Nurse Practitioner; Referring Provider Family Medicine
DX: J02.9 Acute pharyngitis, unspecified (principal); Z20.822 Contact with and (suspected) exposure to COVID-19; I10 Essential (primary) hypertension; E78.00 Pure hypercholesterolemia, unspecified; M32.14 Glomerular disease in systemic lupus erythematosus
CPT/HCPCS: 87081; 87426; 87804; 87880; 99213; G0463